=== PATIENT | male | born 1975 | race Caucasian/White ===

== ENCOUNTER 2019-05-03 13:06 | Emergency (ER) | payer OTHER ==
[~2019-05-03] VITALS: Ht 165.1 cm; Wt 68.0 kg
[2019-05-03 13:06] VITALS: BP 143/98
--- NOTE | 2019-05-03 13:06 | NUR ---
ED Nurse Note: Patient brought in by ambulance RA [id number] with [employer], patient on a custody, for medical clearance. patient c/o left foot injury. swelling noted. [employer] by the bedside.
--- NOTE | 2019-05-03 13:18 | NUR ---
ED Nurse Note: MOTRIN GIVEN FOR LEFT FOOT INJURY
--- NOTE | 2019-05-03 13:39 | Emergency Room Report ---
History of Present Illness General Chief Complaint: Medical Clearance Source: Patient, EMS Present Illness HPI 43-year-old male with no significant past medical history brought in by [employer] clearance. Patient is complaining of left foot pain after an unknown injury today. Patient is rating the pain 10 out of 10 without radiation. Has not taken medication for pain. Denies tingling and numbness and calf tenderness. Denies all other injuries, chest pain, shortness of breath, palpitation, abdominal pain, nausea vomiting. Allergies: Coded Allergies: No Known Allergies (Unverified , 05/03/19) Patient History Past Medical History: see triage record Past Surgical History: unable to obtain Pertinent Family History: none Immunizations: UTD Reviewed Nursing Documentation: PMH: Agreed; PSxH: Agreed Nursing Documentation-PMH Past Medical History: No Stated History Review of Systems All Other Systems: negative except mentioned in HPI Physical Exam Vital Signs Date Time Temp Pulse Resp B/P (MAP) Pulse Ox O2 Delivery O2 Flow Rate FiO2 05/03/19 13:00 97.3 80 16 143/98 (113) 98 Room Air Sp02 EP Interpretation: reviewed, normal General Appearance: normal inspection, well appearing, no apparent distress, alert Head: normocephalic, atraumatic Eyes: bilateral eye normal inspection, bilateral eye PERRL ENT: normal ENT inspection, normal pharynx Neck: normal inspection, full range of motion, supple Respiratory: normal inspection, normal breath sounds, no respiratory distress, no wheezing Cardiovascular #1: normal inspection, regular rate, rhythm, no edema, no murmur , normal capillary refill Cardiovascular #2: 2+ dorsalis pedis (R), 2+ dorsalis pedis (L) Gastrointestinal: normal inspection, soft Rectal: deferred Genitourinary: no CVA tenderness Musculoskeletal: no calf tenderness, swelling - Left foot, tender - Left second and third metatarsals Neurologic: normal inspection, alert, oriented x3 Psychiatric: normal inspection, judgement/insight normal, memory normal Skin: no rash, palpation normal Lymphatic: normal inspection, no adenopathy Procedures Splinting Splinting : Consent: Verbal Splint: poserior short Pre-Proc Neuro Vasc Exam: normal Post-Proc Neuro Vasc Exam: normal Patient Tolerated: Well Complications: None Medical Decision Making PA Attestation All my diagnosis and treatment plans were reviewed ad discussed with my supervising physician Dr. Robert Diagnostic Impression: Primary Impression: Fracture of 2nd metatarsal Additional Impression: Fracture of 3rd metatarsal ER Course 43-year-old male with no significant past medical history brought in by [employer] clearance. Patient is complaining of left foot pain after an unknown injury today. Patient is rating the pain 10 out of 10 without radiation. Has not taken medication for pain. Denies tingling and numbness and calf tenderness. Denies all other injuries, chest pain, shortness of breath, palpitation, abdominal pain, nausea vomiting. Ddx considered but are not limited to: foot fracture, foot sprain, foot contusion, foot strain Vital signs: are WNL, pt. is afebrile H&PE are most consistent with: Fracture of second and third metatarsal of left foot ORDERS: foot Xray , ibuprofen ED INTERVENTIONS: Ibuprofen DISCHARGE: At this time pt. is stable for d/c to law enforcement. Will provide printed patient care instructions, and any necessary prescriptions. Care plan and follow up instructions have been discussed with the patient prior to discharge. Follow-up with protective service specialist keep splint on. Crutches were provided Other X-Ray Diagnostic Results Other X-Ray Diagnostic Results : X-Ray ordered: Left foot # of Views/Limited Vs Complete: 3 View Indication: Pain EP Interpretation: Yes PA Xray: Interpretation reviewed, by supervising MD, and agrees with findings. Interpretation: no dislocation, other - Fracture of left second and third metatarsal Impression: Other - Fracture of left second and third metatarsal Electronically Signed by: Dorothy Borrego PA-C Last Vital Signs Date Time Temp Pulse Resp B/P (MAP) Pulse Ox O2 Delivery O2 Flow Rate FiO2 05/03/19 13:19 80 16 Room Air 05/03/19 13:06 97.3 143/98 98 Disposition: D/C TO LAW ENF[employer]CEMENT IN CUST Condition: Stable Scripts Ibuprofen (Ibu) 800 Mg Tablet 800 MG PO TID, #30 TAB Prov: Dorothy Campos 05/03/19 Patient Instructions: Metatarsal Fracture Additional Instructions: Keep splint on take medication as directed follow-up with your primary care provider and also to be seen by protective service specialist Dorothy Campos May 03, 2019 13:38
[2019-05-03] MEDS ORDERED: IBU800 MG PO (13:41)
--- NOTE | 2019-05-03 13:59 | NUR ---
ER DISCHARGE NOTE: Patient is cleared to be discharged per CELINE MEJIA medically cleared for custody, pt is aox4, on room air, with stable vital signs. pt was given dc and prescription instructions, pt was able to verbalize understanding, pt id band removed without complications. pt is able to ambulate with steady gait. pt took all belongings.
[2019-05-03 14:00] VITALS: BP 143/98
--- NOTE | 2019-05-03 14:01 | Diagnostic Imaging Report ---
Indication: Foot pain Comparison: None Findings: 3 views of the left foot were obtained. There are subacute fractures involving the shafts of the second and third metatarsals with extensive callus. There is some sclerosis at the endosteal aspect of the fractures suspicious for nonunion. There is soft tissue swelling. There is a healed fracture of the fourth metatarsal. IMPRESSION: Subacute healing fractures involving the base of the second and third metatarsals at risk for nonunion. Soft tissue swelling.
== END 2019-05-03 14:00 ==
LOC: EDBD 13:06 → EMR 13:50
DX: S92.322A Displaced fracture of second metatarsal bone, left foot, initial encounter for closed fracture (principal); S92.332A Displaced fracture of third metatarsal bone, left foot, initial encounter for closed fracture; X58.XXXA Exposure to other specified factors, initial encounter; Y92.9 Unspecified place or not applicable
CPT/HCPCS: 29515; 99283